=== PATIENT | female | born 1985 | race Caucasian/White ===

== ENCOUNTER → 2018-06-02 16:23 | Outpatient (CLI) | payer BC, SELFPAY ==
[2018-06-02 20:12] LABS: Chlamydia Trachomatis by PCR Negative (Negative)
[2018-06-02 20:13] LABS: Neisserai gonorrhoeae by PCR Negative (Negative); Probe Check PASS; Sample Adequacy Control PASS; Specimen Processing Control PASS
[2018-06-05 15:53] LABS: HPV Reflexed? NOT INDICATED
== END ==
PROVIDERS: Visit Provider Obstetrics & Gynecology
DX: Z34.81 Encounter for supervision of other normal pregnancy, first trimester (principal); Z12.4 Encounter for screening for malignant neoplasm of cervix; Z11.3 Encounter for screening for infections with a predominantly sexual mode of transmission
CPT/HCPCS: 87491; 87591; 88175; G0145

== ENCOUNTER → 2018-06-23 10:45 | Outpatient (CLI) | payer BC, SELFPAY ==
[2018-06-23 13:55] LABS: Absolute Lymphocyte Count 1.81 X10^3/ul (0.83-4.51); Absolute Neutrophil Count 4.8 X10^3/uL (2.0-7.7); Basophil# 0.04 X10^3/uL; Basophil% 0.5 % (0-1); Eosinophil# 0.11 X10^3/uL; Eosinophils% 1.5 % (0-5); Hematocrit 37.4 % (37-47); Lymphocyte # 1.81 X10^3/ul (4.0); Mean Corp Hgb Conc 34.8 g/gl (32-36); Mean Corpuscular Hgb 29.9 pg (27.0-32.0); Mean Platelet Vol. 10.4 fl (6.2-12.0); Monocyte# 0.74 X10^3/uL; Monocyte% 9.8 % (0-10); Neutrophil # 4.84 X10^3/uL (2.7-7.7); Neutrophil % 64.1 % (47-70); POSITIVE COUNT NO; POSITIVE DIFFERENTIAL NO; POSITIVE MORPHOLOGY NO; Platelet Count 257 K/mm3 (150-450); RBC Distribution Width CV 12.4 % (11.6-14.6); Red Blood Count 4.35 M/mm3 (4.2-5.4); White Blood Count 7.6 K/mm3 (4.4-11.0)
[2018-06-23 13:57] LABS: Color, Urine Yellow (Yellow); Glucose, Dipstick Normal (Normal); Ketone-Dipstick Negative (Negative); Leukocyte Esterase-Dipstick Negative /ul (Negative); Nitrite-Dipstick Negative (Negative); Occult Blood-Urine Negative /ul (Negative); Protein-Dipstick Negative (Negative); Urine Bilirubin Dipstick Negative (Negative); Urine Clarity Sl. Cloudy (Clear); Urine Urobilinogen Normal (Normal)
[2018-06-23 14:03] LABS: COTININE Drug Screen Negative (<200 ng/mL)
[2018-06-23 14:15] LABS: Amphetamine Urine VISTA NEGATIVE (<1000 ng/mL); Barbiturate Urine VISTA NEGATIVE (< 200 ng/mL); Benzodiazepine Urine VISTA NEGATIVE (< 200 ng/mL); Cocaine Urine VISTA NEGATIVE (< 300 ng/mL); Ecstacy Urine VISTA NEGATIVE (< 500 ng/mL); Methadone Urine VISTA NEGATIVE (< 300 ng/mL); PCP Urine VISTA NEGATIVE (< 25 ng/mL); THC Urine VISTA NEGATIVE (< 50 ng/mL); Vista UDS pH Range 5
[2018-06-23 14:17] LABS: Thyroid Stim Hormone (TSH) 0.71 uIU/mL (0.358-3.74)
[2018-06-23 14:59] LABS: HIV - WCH Non-Reactive (Nonreactive); Rubella IgG 36.4 IU/mL
[2018-06-24 09:30] LABS: HEPATITIS B SURFACE AG Negative (Negative); Hep C Antibodies <0.1 s/co ratio (0.0-0.9)
[2018-06-26 03:50] LABS: Prenatal RPR NONREACTIVE (NONREACTIVE)
== END ==
PROVIDERS: Visit Provider Obstetrics & Gynecology
DX: Z34.81 Encounter for supervision of other normal pregnancy, first trimester (principal)
CPT/HCPCS: 36415; 80307; 81002; 84443; 85025; 86703; 86762; 86803; 87340

== ENCOUNTER → 2018-10-20 10:10 | Outpatient (CLI) | payer BC, SELFPAY ==
[2018-10-20 13:56] LABS: Hematocrit 35.8 % (37-47); Hemoglobin 11.7 g/dl (12.0-15.0); Mean Corp Hgb Conc 32.7 g/gl (32-36); Mean Corpuscular Hgb 30.2 pg (27.0-32.0); Mean Corpuscular Volume 92.5 fL (81-99); Mean Platelet Vol. 10.1 fl (6.2-12.0); Platelet Count 212 K/mm3 (150-450); RBC Distribution Width CV 13.9 % (11.6-14.6); RBC Distribution Width SD 46.2 fl (35.1-43.9); Red Blood Count 3.87 M/mm3 (4.2-5.4); White Blood Count 8.8 K/mm3 (4.4-11.0)
[2018-10-20 13:58] LABS: Scan Indicated on CBC? Y/N NO
[2018-10-20 14:04] LABS: Glucose Challenge Gest 1H 50g 75 mg/dL (70-140)
== END ==
PROVIDERS: Visit Provider Obstetrics & Gynecology
DX: Z34.82 Encounter for supervision of other normal pregnancy, second trimester (principal)
CPT/HCPCS: 36415; 82950; 85027

== ENCOUNTER → 2018-12-15 16:24 | Outpatient (CLI) | payer BC, SELFPAY ==
[2015-09-15 14:06] VITALS: BMI 21.0
== END ==
PROVIDERS: Visit Provider Obstetrics & Gynecology
DX: Z36.85 Encounter for antenatal screening for Streptococcus B (principal)
CPT/HCPCS: 87081

== ENCOUNTER 2019-01-06 03:10 | Outpatient (CLI) | payer BC, SELFPAY ==
[2019-01-06 04:13] VITALS: BMI 29.0
--- NOTE | 2019-01-07 17:31 | OB.TRI.NOTE ---
History of Present Illness Date of Service: 01/06/19 Was patient seen by the physician?: No Reason For Visit: R/O LABOR Date of Service: 01/06/19 Final LAMBERT: 01/19/19 Gestational age: 38 Weeks and 1 Days History of Present Illness: 33 yo female at 38 1/7 wk with UCs. recent intercourse. here for labor check. Observed and rechecked with no change in cervix. Sent home, false labor. Allergies No Known Allergies Allergy (Verified 09/15/15 14:09) NST - FHR Rate Baby A Baseline: 120s avg with accels to 160s Variability:: Moderate Accelerations:: 15 x 15 Decelerations:: None NST Reactive:: Yes, Appropriate for gestational age FHR Category:: Category I Uterine Activity:: UCs q 3-4 minutes Impression/Plan 38 1/7 wk irregular UCs. False labor, no cervix change with observation. NST reactive Home. follow up in ofc for PNV as scheduled. return to OB dept if inc s/sx of labor.
== END 2019-01-06 06:38 | disposition home or self-care (01) ==
LOC: WPOUT 03:38 → WP 03:38
PROVIDERS: Visit Provider Obstetrics & Gynecology
DX: O47.1 False labor at or after 37 completed weeks of gestation (principal); Z3A.38 38 weeks gestation of pregnancy
CPT/HCPCS: 59050; 99218; G0378

== ENCOUNTER 2019-01-22 02:03 | Inpatient (IN) | payer BC, SELFPAY ==
[2019-01-22] MEDS: Lactated Ringers 1,000 ML 50 ML IV ×3 (02:45→05:37)
[2019-01-22 02:51] VITALS: BMI 29.2
[2019-01-22 03:02] LABS: Absolute Lymphocyte Count 2.98 X10^3/ul (0.83-4.51); Absolute Neutrophil Count 9.3 X10^3/uL (2.0-7.7); Basophil# 0.03 X10^3/uL; Basophil% 0.2 % (0-1); Differential Indicated SCAN CRITERIA MET; Eosinophil# 0.14 X10^3/uL; Hematocrit 36.8 % (37-47); Hemoglobin 12.7 g/dl (12.0-15.0); Lymphocyte # 2.98 X10^3/ul (4.0); Lymphocyte % 20.9 % (19-41); Mean Corp Hgb Conc 34.5 g/gl (32-36); Mean Corpuscular Hgb 30.4 pg (27.0-32.0); Mean Platelet Vol. 10.8 fl (6.2-12.0); Monocyte% 11.2 % (0-10); Neutrophil # 9.34 X10^3/uL (2.7-7.7); Neutrophil % 65.7 % (47-70); POSITIVE COUNT NO; POSITIVE DIFFERENTIAL YES; POSITIVE MORPHOLOGY NO; Platelet Count 189 K/mm3 (150-450); RBC Distribution Width CV 13.8 % (11.6-14.6); RBC Distribution Width SD 43.1 fl (35.1-43.9); Red Blood Count 4.18 M/mm3 (4.2-5.4); White Blood Count 14.2 K/mm3 (4.4-11.0)
[2019-01-22] MEDS: fentaNYL-bupivacaine (epidural) 100 ML BAG EPIDURAL (04:04)
[2019-01-22] MEDS: Mag Hydrox/Al Hydrox/Simeth 30 ML UDC PO (05:06)
--- NOTE | 2019-01-22 07:24 | PCM.PN.BLA ---
Progress Note LABOR PROGRESS NOTE. 40 3/7 wk EGA Labor SROM this am approx 5:30 am, meconium Epidural in place. Feeling some pressure Carmona in place AVSS EFM 120-130s avg variability. Accels Occasional early deceleration. Variable noted with SROM UCs q 4 - 5 mins CX: 6-7/75/-2 A/P: 40 3/7 wk spont labor. Meconium Category I tracing. Watch progress, anticipate .
[2019-01-22] MEDS: Oxytocin 30 units/NS 500 ml 30 UNITS/500 ML IV.SOLN 334 UNITS IV (08:35)
[2019-01-22] MEDS: Methylergonovine 0.2 MG/ML Ampul IM (08:44)
[2019-01-22] MEDS: Oxytocin 30 units/NS 500 ml 30 UNITS/500 ML IV.SOLN 167 UNITS IV (09:35)
--- NOTE | 2019-01-22 09:44 | PCM.HPOB.BLA ---
History and Physical Date of Admission: 01/22/19 OB HISTORY AND PHYSICAL EXAMINATION History of this : 33 yo female Ab0 with EDC 01/19/2019 by 10 weeks 0 days Ultrasound, presents to Labor and Delivery with CC of contractions. care unremarkable. O positive. Rubella immune. Pertinent Past Medical History: Negative. Allergies: No Known Drug Allergies Medications: During - Probiotic 15 billion cell capsule; 28 mg-800 mcg tablet Review of Systems: Non-contributory PHYSICAL EXAMINATION General Appearance: 33 yo female in no acute distress Vital Signs: AF, VSS Heart: RRR without rubs or gallops Lungs: CTA x 2 Breasts: deferred Abdomen: gravid Pelvis: Cervix: See nursing charting for initial cervix exams. Presentation: cephalic Station: Fetus: Size: AGA Movement: present Heart: present Impression /Plan: Intrauterine . 40 37 wk presents in labor. Epidural placed and adequate progression noted. Anticipate . See Progress Notes for Changes: Physician's Signature: Date: AMBER CRUZ [id number] REV. 03/21
[2019-01-22] MEDS: Ibuprofen 600 MG Tablet PO ×2 (10:05→19:41)
[2019-01-22] MEDS: 0.9% Saline Lock 10 ML Syringe IV (10:25)
[2019-01-22 12:05] VITALS: BP 103/59; PULSE 82; RESP 18
[2019-01-22 14:10] VITALS: BP 116/72; PULSE 91; RESP 18; TEMP 36.7; O2SAT 97
[2019-01-22 14:26] LABS: Pathologist Review Reviewed
[2019-01-22 16:04] VITALS: BP 112/70; PULSE 79; RESP 16; TEMP 36.1; O2SAT 98
[2019-01-22] MEDS: Acetaminophen 500 MG Tablet 1000 MG PO (16:16)
[2019-01-22 20:31] VITALS: BP 105/64; PULSE 109; RESP 16; TEMP 36.8; O2SAT 98
[2019-01-22] MEDS: Prenatal Vits Tablet 1 TABLET PO (21:55)
--- NOTE | 2019-01-22 22:03 | OP.PCM_ITS ---
Vaginal Delivery Maternal Presentation: Active Labor 40 3/7 wk labor Amniotic Membrane Rupture Type: Spontaneous Rupture of Membrane time: 0530 Amniotic Fluid Description: Lightly stained meconium Final LAMBERT: 01/19/19 Final LAMBERT Source: US <20 weeks Gestational age: 40 Weeks and 3 Days Date of Procedure: 01/22/19 Pre-Operative Diagnosis: 40 3/7 wk labor Post-Operative Diagnosis: same Surgery/ Procedure Performed: Spontaneous Vaginal Delivery Type of Anesthesia: Epidural Description of Procedure: of a arevalo viable male over intact perineum to vaginal and perineal lacerations. Head delivered ROXI. OP and nares bulb suctioned on perineum. Nuchal cord times one reduced. Shoulders delivered easily to maternal abdomen with spont cry. Delayed cord clamping. Cord clamped times two and cut. Ap 04/26 Wt : 3964 gm Placenta delivered by spont expulsion and expression. Continued bleeding noted. Banjo curette used to clear uterus and lower uterine segment/cervix of additional placental tissue and membranes Better hemostasis then noted PP exam; 2nd deg vaginal wall lacerations and posterior vaginal / perineal lacerations noted. Repaired to hemostatic and intact with several packets of 3- 0 Vicryl. Bleeding noted at L vaginal wall laceration initially brisk and requiring oversewing with fig of 8 stitches and mattress stitches of 3-0 Vicryl. Small hematoma at R posterior perineum, stable in size. EBL 500 cc Pt and infant tolerated delivery well. Tor recovery in stable condition. Ray Fani and needle counts correct times two. Presentation: Vertex Placental Delivery Description: Spontaneous, Expressed Placenta Disposition: [facility] Cord Vessel Description: 3 Vessels Nuchal Cord Compression: Without compression Cord Entanglement: Around neck x 1, loose Estimated Blood Loss: 500 A gender: Male (1 minute): 9 (5 minute): 9 Episiotomy Description: None Laceration: Midline, Perineal Extension/lac - lacerations along both vaginal side arnold., Vaginal Extension/lac, 2nd degree Medications given after delivery: IV Pitocin, IM Methergin Complications: None
--- NOTE | 2019-01-22 22:07 | PCM.DCVAG ---
Discharge Diet: No Restrictions Discharge Activity: May Shower, May Take a Tub Bath May resume sexual activity in: 4-6 weeks Additional Activity Instructions:: Nothing in the vagina for 4-6 weeks. You may return to work/school in 6 weeks. Additional Instructions: If you experience any of the following, contact your healthcare provider. Bleeding that soaks a pad every hour for 2 hours Fever 100.4 or higher Unrelieved abdominal pain Problems urinating (including inability to urinate or burning while urinating). Visual changes Severe headache Flu-like symptoms Pain or redness in one of both of your breasts Pain, warmth, tenderness or swelling in your legs, especially the calf area Frequent nausea and vomiting Symptoms of depression or anxiety If you experience any of the following, call 911 or go to the nearest Emergency Room. Chest pain Problems breathing Seizure activity Partial or complete paralysis of a body part, slurred speech, weakness or drooping of the face, or a sudden inability to walk or hold your balance Allergies/Adverse Reactions: Allergies No Known Allergies Allergy (Verified 01/22/19 03:20) Medications to take at Discharge Vits [Prenatabs FA] 1 tablet PO DAILY 01/06/19 Please Follow Up With: Radha Cobos MD - [phone] When: Call to make an appointment with your doctor in 6 weeks. Primary Care Physician: Care Physician,No Primary [Primary Care Provider] - Test Results: Test results from this visit will be discussed in further detail at your follow-up appointment, if applicable. Proposed Discharge Date: 01/24/19
--- NOTE | 2019-01-22 22:08 | DCINST_ITS ---
Discharge Diet: No Restrictions Discharge Activity: May Shower, May Take a Tub Bath May resume sexual activity in: 4-6 weeks Additional Activity Instructions:: Nothing in the vagina for 4-6 weeks. You may return to work/school in 6 weeks. Additional Instructions: If you experience any of the following, contact your healthcare provider. * Bleeding that soaks a pad every hour for 2 hours * Fever 100.4 or higher * Unrelieved abdominal pain * Problems urinating (including inability to urinate or burning while urinating). * Visual changes * Severe headache * Flu-like symptoms * Pain or redness in one of both of your breasts * Pain, warmth, tenderness or swelling in your legs, especially the calf area * Frequent nausea and vomiting * Symptoms of depression or anxiety If you experience any of the following, call 911 or go to the nearest Emergency Room. * Chest pain * Problems breathing * Seizure activity * Partial or complete paralysis of a body part, slurred speech, weakness or drooping of the face, or a sudden inability to walk or hold your balance Allergies/Adverse Reactions: Allergies No Known Allergies Allergy (Verified 01/22/19 03:20) Medications to take at Discharge Vits [Prenatabs FA] 1 tablet PO DAILY 01/06/19 Please Follow Up With: Radha Cobos MD - [phone] When: Call to make an appointment with your doctor in 6 weeks. Primary Care Physician: Care Physician,No Primary [Primary Care Provider] - Test Results: Test results from this visit will be discussed in further detail at your follow- up appointment, if applicable. Proposed Discharge Date: 01/24/19
[2019-01-23 00:01] VITALS: BP 109/61; PULSE 92; RESP 16; TEMP 36.6; O2SAT 98
[2019-01-23] MEDS: Acetaminophen 500 MG Tablet 1000 MG PO ×2 (00:40→08:11)
[2019-01-23] MEDS: Ibuprofen 600 MG Tablet PO ×2 (03:25→12:28)
[2019-01-23 05:10] VITALS: BP 113/60; PULSE 92; RESP 16; TEMP 36.6; O2SAT 99
[2019-01-23 05:18] LABS: Hematocrit 30.3 % (37-47); Hemoglobin 8.9 g/dl (12.0-15.0); Mean Corp Hgb Conc 29.4 g/gl (32-36); Mean Corpuscular Hgb 26.6 pg (27.0-32.0); Mean Corpuscular Volume 90.4 fL (81-99); Mean Platelet Vol. 10.2 fl (6.2-12.0); Platelet Count 160 K/mm3 (150-450); RBC Distribution Width CV 14.1 % (11.6-14.6); RBC Distribution Width SD 44.6 fl (35.1-43.9); Red Blood Count 3.35 M/mm3 (4.2-5.4); White Blood Count 12.7 K/mm3 (4.4-11.0)
[2019-01-23 05:20] LABS: Scan Indicated on CBC? Y/N NO
[2019-01-23 08:05] VITALS: BP 106/57; PULSE 78; RESP 18; TEMP 36.4
--- NOTE | 2019-01-23 08:07 | PCM.PN.OB ---
Subjective: PPD#1 40 3/7 wk EGA PP hemorrhage (2/2 lacerations, and placental membranes noted at [facility] bedside at delivery, under epidural anesthesia) Doing well. States a little sore, the normal would like to go home today. Breast feeding Baby is doing well. Objective: Moving well in bed, NAD - Physical Exam General: Alert, Oriented x3, Cooperative, No apparent distress HEENT: Atraumatic Neck: Supple Abdomen: Soft - Fundus firm NT at approx umbilicus Neurological: Cranial nerves II-XII grossly intact Psych/Mental Status: Normal Affect Vital Signs Temp Pulse Resp BP Pulse Ox 97.8 F 92 16 113/60 99 01/23/19 05:10 01/23/19 05:10 01/23/19 05:10 01/23/19 05:10 01/23/19 05:10 Oxygen Delivery Method Room Air Weight: 84.9 kg Body Mass Index (BMI) 29.2 Intake and Output for Last 24 Hours 01/21/19 01/22/19 01/23/19 23:59 23:59 23:59 Intake Total 4505 / 4505 Output Total 2500 / 2500 Balance 2004 Laboratory Tests Past 24 Hrs 01/22/19 01/23/19 02:45 05:10 WBC 12.7 H RBC 3.35 L Hgb 8.9 L Hct 30.3 L MCV 90.4 MCH 26.6 L MCHC 29.4 L RDW 14.1 RDW Differential 44.6 H Plt Count 160 MPV 10.2 [address] Review Reviewed Medical Necessity - Tobacco Use Smoking Status: Former smoker Assessment/Plan PPD#1 pp hemorrhage Stable pp Ferrous gluconat bid for one mo . RX sent in RTO in 6 wk for pp check, prn sooner.
[2019-01-23] MEDS: Ferrous Gluconate 324 MG Tablet PO (08:11)
--- NOTE | 2019-01-23 09:59 | CASEMGMT ---
Social Work Note SW met with pt in regards to history of anxiety. SW introduced self and role at [facility]. Pt is alert and orientated x4, FOB is present in room as well. Pt gave this worker permission to speak to her in front of her guest. PT states that she is hoping to be discharged home today and has the equipment that she needs. Pt states that she's always had anxiety but states that it's never been severe or an issue. Pt states that she has had panic attacks before but she has been able to manage the panic attacks. Pt states that deep breathing exercises helps when she has her panic attacks. Pt denied additional needs or concerns at this time, denied counseling resources. Pura Stokes BIOLOGY SPECIMEN TECHNICIAN, DOWEL MACHINE OPERATOR
[2019-01-23 12:30] VITALS: BP 109/70; PULSE 98; RESP 16; TEMP 36.2
== END 2019-01-23 13:00 | disposition home or self-care (01) | DRG 806 ==
PROVIDERS: Obstetrics & Gynecology; Admitting Provider Obstetrics & Gynecology; Visit Provider Obstetrics & Gynecology
DX: O69.81X0 Labor and delivery complicated by cord around neck, without compression, not applicable or unspecified (principal); O72.1 Other immediate postpartum hemorrhage; Z37.0 Single live birth; Z3A.40 40 weeks gestation of pregnancy; O77.0 Labor and delivery complicated by meconium in amniotic fluid; O70.1 Second degree perineal laceration during delivery; Z87.891 Personal history of nicotine dependence
CPT/HCPCS: 59050; 85025; 85027; 86850; 86900; 99218; J7120; A4216; G0378

== ENCOUNTER 2022-02-11 07:55 | Emergency (ER) | payer BC, SELFPAY ==
[2022-02-11 07:56] VITALS: BP 123/82; PULSE 68; RESP 17; TEMP 36.7; O2SAT 98; BMI 27.0
--- NOTE | 2022-02-11 08:39 | CT_ITS ---
STUDY: CT ABDOMEN AND PELVIS WITH CONTRAST REASON FOR EXAM: Female, 36 years old. RLQ PAIN RADIATION DOSAGE (If Supplied By Facility): CTDIvol = ( 12.87 ) mGy, DLP = ( 643.55 ) mGycm TECHNIQUE: Transaxial images were obtained from the dome of the diaphragm to the symphysis pubis without oral contrast. IV 100mL Isovue-300 was administered. Sagittal and coronal images were reconstructed. Individualized dose optimization techniques were used for this CT. COMPARISON: None. FINDINGS: The visualized lung bases are unremarkable. The visualized portions of the heart are within normal limits. Normal liver. Normal gallbladder and extrahepatic biliary system. Normal spleen. Normal pancreas. Normal bilateral adrenal glands. Normal right kidney. Normal left kidney. There is a small hiatal hernia. Normal small intestine. Normal colon. The appendix is visualized and appears normal. Normal abdominal aorta. Normal inferior vena cava. Normal retroperitoneum. Normal urinary bladder. There is a 3.2 cm x 2.9 cm cyst in the left ovary. The endometrium is thickened measuring 2.2 cm. There is a small umbilical hernia containing fat. Normal osseous structures. CT/Abdomen/Pelvis W IV Cont ONLY IMPRESSION: 3.2 cm x 2.9 cm cyst in the left ovary. Electronically Signed: Sage Ramesh MD at 9:58 EDT ,
--- NOTE | 2022-02-11 08:40 | EX.ED.DYSGE1 ---
HPI History of Present Illness Chief Complaint: Abd Pain Informant: patient Narrative Narrative: 36-year-old female presenting to the emergency room with intermittent right lower quadrant pain. Patient states symptoms began yesterday. She notes that she has had diarrhea yesterday and today. No fever no vomiting or nausea. She describes the pain as coming like labor pains but as this morning has progressed the pains have not been coming as frequently. Pain does not radiate described as burning and tightening in the right lower quadrant. No prior history of kidney stones or ovarian cyst. [facility] Medical History Chronic neck and back pain Seasonal allergies Home Medications NK 04/01/21 [History Last Taken Unknown] Allergy/AdvReac Type Severity Reaction Status Date / Time No Known Allergies Allergy Verified 02/11/22 07:55 Family History Mother Diabetes Hypertension Father Diabetes Heart disease Hypertension Other Cancer Social History household members: spouse and children number of children: 2 current occupation: [employer] history of recent travel: No sexually active: Yes Smoking Status: Former smoker alcohol intake: current alcohol intake frequency: a few times a month substance use type: does not use what type of physical activity do you participate in: none seatbelt use: always do you feel safe at home: Yes additional social history: - James ROS ROS ED Constitutional Constitutional ED: Denies chills or weight loss Eyes Eyes: Denies change in vision or diplopia ENT ENT ED: Denies ear pain, rhinorrhea or sore throat Cardiovascular Cardiovascular: Denies chest pain, orthopnea, palpitations or racing heartbeat Respiratory/Chest Respiratory/Chest: Denies cough, dyspnea or orthopnea Gastrointestinal Gastrointestinal: Reports abdominal pain and diarrhea; Denies nausea or vomiting Genitourinary Genitourinary ED: Denies dysuria, hematuria or urinary frequency Musculoskeletal Musculoskeletal: Denies arthralgias or myalgias Integumentary Denies abscess or rash Neurologic Neurologic: Denies headache(s) or weakness Psychiatric Psychiatric: Denies anxiety, depression, suicidal ideation or suicidal thoughts Endocrine Endocrinology: Denies polydipsia, polyphagia or polyuria Allergic/Immunologic Allergic/Immunologic ED: Denies mouth swelling, tongue swelling or urticaria EXAM Physical Exam Const Vital Signs: 02/11/22 07:56 Temperature 98.1 F Temperature Source Temporal Pulse Rate 68 Respiratory Rate 17 Blood Pressure 123/82 H Blood Pressure Mean 95 Pulse Ox 98 Oxygen Delivery Method Room Air Positive well nourished and well developed General Appearance ED: well developed HEENT Reports normocephalic, head/scalp atraumatic and moist mucous membranes Eyes PERRL and EOMs intact bilaterally Neck no lymphadenopathy, supple and no JVD Resp normal respiratory effort and clear to auscultation bilaterally Cardio regular rate, regular rhythm and no murmurs GI normal to inspection, nondistended, normoactive bowel sounds and non-tender Palpation: soft Back/Spine no CVA tenderness and normal ROM Extremity normal to inspection General Extremety ED: Negative for edema General Extremity: Negative for edema Neuro oriented x3 and CN's II-XII intact bilaterally Sensorium / Orientation: alert Motor Exam: strength 5/5 throughout Psych mental status grossly normal Mood & Affect: Negative for depressed or tearful Skin no rashes or lesions noted and no wounds MDM MDM MDM Narrative Medical decision making narrative: Basic blood work showed a white count of 7.0. CMP was normal. test was negative. Urinalysis was normal. CT of the abdomen pelvis was performed. This does not show any acute pathology to explain her pain. She does have an ovarian cyst on the left. However on my review of the CT I do see an increased amount of stool in the right ascending colon. Perhaps this is the source of the patient's pain given that it is intermittent and seems like contractions. Patient will use conservative measures that she is having diarrhea such as apple juice and increase water and exercise. If she is not getting relief from that we will have her use a bottle of magnesium citrate. Patient understands the plan will return if worsening or concerns. Lab Data Attestation: I reviewed the patient's lab results. Labs: Laboratory Results - last 24 hr 02/11/22 02/11/22 02/11/22 08:35 08:35 08:35 WBC 7.0 RBC 4.32 Hgb 12.9 Hct 38.5 MCV 89.1 MCH 29.9 MCHC 33.5 RDW Std Deviation 39.4 RDW Coeff of Angely 12.0 Plt Count 255 MPV 10.7 Immature Gran % (Auto) 0.300 Neut % (Auto) 54.9 Lymph % (Auto) 34.7 [place] % (Auto) 6.6 Eos % (Auto) 2.3 Baso % (Auto) 1.2 H Absolute Neuts (auto) 3.8 Absolute Lymphs (auto) 2.41 Nucleated RBC % 0 Sodium 139 Potassium 3.9 Chloride 108 H Carbon Dioxide 23.0 Anion Gap 8 BUN 14 Creatinine 0.97 Estim Creat Clear Calc 79.47 Est GFR (MDRD) Af Amer 84 Est GFR (MDRD) Non-Af 70 BUN/Creatinine Ratio 14.4 Glucose 100 Calcium 9.1 Total Bilirubin 0.40 AST 18 ALT 18 Alkaline Phosphatase 58 Total Protein 7.7 Albumin 3.8 Globulin 3.9 Albumin/Globulin Ratio 1.0 Serum , Qual NEGATIVE Urine Color Urine Clarity Urine pH Ur Specific [place] Urine Protein Urine Glucose (UA) Urine Ketones Urine Occult Blood Urine Nitrite Urine Bilirubin Urine Urobilinogen Ur Leukocyte Esterase Urine RBC Urine WBC Ur Squamous Epith Cells Urine Bacteria Urine Mucus 02/11/22 08:48 WBC RBC Hgb Hct MCV MCH MCHC RDW Std Deviation RDW Coeff of Angely Plt Count MPV Immature Gran % (Auto) Neut % (Auto) Lymph % (Auto) [place] % (Auto) Eos % (Auto) Baso % (Auto) Absolute Neuts (auto) Absolute Lymphs (auto) Nucleated RBC % Sodium Potassium Chloride Carbon Dioxide Anion Gap BUN Creatinine Estim Creat Clear Calc Est GFR (MDRD) Af Amer Est GFR (MDRD) Non-Af BUN/Creatinine Ratio Glucose Calcium Total Bilirubin AST ALT Alkaline Phosphatase Total Protein Albumin Globulin Albumin/Globulin Ratio Serum , Qual Urine Color Yellow Urine Clarity Clear Urine pH 6.0 Ur Specific [place] 1.010 Urine Protein Negative Urine Glucose (UA) Normal Urine Ketones Negative Urine Occult Blood Negative Urine Nitrite Negative Urine Bilirubin Negative Urine Urobilinogen Normal Ur Leukocyte Esterase Negative Urine RBC 0 SEEN Urine WBC 0 SEEN Ur Squamous Epith Cells 0 SEEN Urine Bacteria 0 SEEN Urine Mucus 0 SEEN Radiography Diagnostic Testing: Clinical Impression(s) from Imaging Studies Abdomen/Pelvis CT 02/11/22 08:39 IMPRESSION: 3.2 cm x 2.9 cm cyst in the left ovary. Electronically Signed: Sage Ramesh MD at 9:58 EDT , Discharge Plan Triage Chief Complaint: Abd Pain ED Provider: Paul Kim Dx/Rx/DC Orders Clinical Impression: Abdominal pain, acute, Diarrhea Prescriptions: No Action NK Primary Care Provider: Care Physician,No Primary Referrals: Care Physician,No Primary [Primary Care Provider] - Disposition Disposition: Home, Self Care
[2022-02-11 08:56] LABS: Absolute Lymphocyte Count 2.41 X10^3/uL (0.83-4.51); Absolute Neutrophil Count 3.8 X10^3/uL (2.0-7.7); Basophil# 0.08 X10^3/uL; Basophil% 1.2 % (0-1); Eosinophil# 0.16 X10^3/uL; Eosinophils% 2.3 % (0-5); Hematocrit 38.5 % (37-47); Hemoglobin 12.9 g/dL (12.0-15.0); Lymphocyte # 2.41 X10^3/ul (0.83-4.51); Lymphocyte % 34.7 % (19-41); Mean Corp Hgb Conc 33.5 g/dL (32-36); Mean Corpuscular Hgb 29.9 pg (27.0-32.0); Mean Corpuscular Volume 89.1 fL (81-99); Mean Platelet Vol. 10.7 fl (6.2-12.0); Monocyte# 0.46 X10^3/uL; Monocyte% 6.6 % (0-10); NRBC Flagged by Analyzer 0 % (0-5); Neutrophil # 3.82 X10^3/uL (2.7-7.7); Neutrophil % 54.9 % (47-70); Platelet Count 255 K/mm3 (150-450); RBC Distribution Width SD 39.4 fl (35.1-43.9); Red Blood Count 4.32 M/mm3 (4.2-5.4)
[2022-02-11 08:57] LABS: Bacteria 0 SEEN /hpf (None Seen); Mucous, Urine 0 SEEN /hpf (<or=2+); Red Blood Cells-Urine 0 SEEN /hpf (0-5); Squamous Epithelial Cells - UA 0 SEEN /hpf (5-10); White Blood Cells 0 SEEN /hpf (0-5)
[2022-02-11 08:59] LABS: Color, Urine Yellow (Yellow); Glucose, Dipstick Normal (Normal); Ketone-Dipstick Negative (Negative); Leukocyte Esterase-Dipstick Negative /ul (Negative); Nitrite-Dipstick Negative (Negative); Occult Blood-Urine Negative /ul (Negative); Protein-Dipstick Negative (Negative); Urine Bilirubin Dipstick Negative (Negative); Urine Clarity Clear (Clear); Urine Urobilinogen Normal (Normal)
[2022-02-11 09:12] LABS: Internal QC Validated? YES +Cl - CLEAR BKGD; Pregnancy, Serum, hCG Quali. NEGATIVE Negative
[2022-02-11 09:22] LABS: AST(SGOT) 18 U/L (15-37); Alanine Aminotransfer ALT/SGPT 18 U/L (13-56); Albumin, Serum 3.8 g/dL (3.2-5.0); Alkaline Phosphatase 58 U/L (45-117); Anion Gap 8 (5-15); BUN 14 mg/dL (7-18); BUN/Creat Ratio 14.4 RATIO (10-20); Calcium,Total 9.1 mg/dL (8.5-10.1); Chloride 108 mmol/L (98-107); Creatinine, Serum 0.97 mg/dL (0.55-1.02); EST Glomerular Filtration Rate 70 mL/min (>60); Est Glom Filt Rate - Afr Amer 84 mL/min (>60); Estimated Creatinine Clearance 79.47 ml/min; Globulin 3.9 g/dL (2.2-4.2); Glucose 100 mg/dL (74-106); Potassium 3.9 mmol/L (3.5-5.1); Protein, Total 7.7 g/dL (6.4-8.2); Sodium Level 139 mmol/L (136-145)
== END 2022-02-11 11:08 | disposition home or self-care (01) ==
PROVIDERS: Emergency Provider Emergency Medicine; Visit Provider Emergency Medicine
DX: R19.7 Diarrhea, unspecified (principal); N83.202 Unspecified ovarian cyst, left side; Z87.891 Personal history of nicotine dependence
CPT/HCPCS: 74177; 80053; 81001; 84703; 85025; 99282; J7030; Q9967; A4216

== ENCOUNTER → 2023-04-03 | Outpatient (CLI) | payer BC, SELFPAY ==
[2023-04-03 15:24] LABS: Absolute Neutrophil Count 3.1 X10^3/uL (2.0-7.7); Basophil# 0.08 X10^3/uL; Basophil% 1.3 % (0-1); Eosinophil# 0.15 X10^3/uL; Eosinophils% 2.4 % (0-5); Hematocrit 37.6 % (37-47); Hemoglobin 12.5 g/dL (12.0-15.0); Lymphocyte % 35.7 % (19-41); Mean Corp Hgb Conc 33.2 g/dL (32-36); Mean Corpuscular Hgb 30.2 pg (27.0-32.0); Mean Corpuscular Volume 90.8 fL (81-99); Mean Platelet Vol. 11.6 fl (6.2-12.0); Monocyte% 9.7 % (0-10); NRBC Flagged by Analyzer 0 % (0-5); Neutrophil # 3.13 X10^3/uL (2.7-7.7); Neutrophil % 50.9 % (47-70); Platelet Count 266 K/mm3 (150-450); RBC Distribution Width CV 12.6 % (11.6-14.6); RBC Distribution Width SD 41.3 fl (35.1-43.9); Red Blood Count 4.14 M/mm3 (4.2-5.4); White Blood Count 6.2 K/mm3 (4.4-11.0)
[2023-04-03 15:48] LABS: ALB/GLOB Ratio 1.1 RATIO (0.9-2.4); AST(SGOT) 17 U/L (15-37); Alanine Aminotransfer ALT/SGPT 18 U/L (13-56); Albumin, Serum 3.9 g/dL (3.2-5.0); Alkaline Phosphatase 60 U/L (45-117); Anion Gap 3 (5-15); BUN 16 mg/dL (7-18); BUN/Creat Ratio 17.6 RATIO (10-20); Calcium,Total 9.1 mg/dL (8.5-10.1); Chloride 111 mmol/L (98-107); Creatinine, Serum 0.91 mg/dL (0.55-1.02); EST Glomerular Filtration Rate 75 mL/min (>60); Est Glom Filt Rate - Afr Amer 90 mL/min (>60); Globulin 3.7 g/dL (2.2-4.2); Glucose 80 mg/dL (74-106); Potassium 3.9 mmol/L (3.5-5.1); Protein, Total 7.6 g/dL (6.4-8.2); Sodium Level 140 mmol/L (136-145); Thyroid Stim Hormone (TSH) 1.68 uIU/mL (0.358-3.74)
[2023-04-03 21:25] LABS: Vitamin B12 587 pg/mL (211-911)
== END | disposition home or self-care (01) ==
LOC: MFPLAB 12:06
PROVIDERS: PCP Family Medicine; Visit Provider Family Medicine
DX: R20.0 Anesthesia of skin (principal)
CPT/HCPCS: 36415; 80053; 82607; 84443; 85025

== ENCOUNTER → 2023-11-13 | Outpatient (CLI) | payer BC, SELFPAY | END | disposition home or self-care (01) | PROVIDERS: PCP Family Medicine; Referring Provider Nurse Practitioner Women's Health; Visit Provider Nurse Practitioner Women's Health | DX: N89.8 Other specified noninflammatory disorders of vagina (principal) | CPT/HCPCS: 87070; 87205 ==

== ENCOUNTER → 2024-02-10 | Outpatient (CLI) | payer BC, SELFPAY ==
[2024-02-15 11:07] LABS: HPV APTIMA, High Risk Negative (Negative)
== END | disposition home or self-care (01) ==
LOC: LABSPEC 16:50
PROVIDERS: Referring Provider Nurse Practitioner Women's Health; Visit Provider Nurse Practitioner Women's Health
DX: Z12.4 Encounter for screening for malignant neoplasm of cervix (principal)
CPT/HCPCS: 87624; 88175; G0145